=== PATIENT | male | born 1940 | race Caucasian/White ===

== ENCOUNTER → 2021-06-04 | Outpatient (CLI) | payer MEDICARE ==
--- NOTE | 2021-06-04 11:56 | CT ---
EXAMINATION TYPE: CT abdomen pelvis w con DATE OF EXAM: 06/04/2021 COMPARISON: None. HISTORY: Prostate cancer CT DLP: 1296.5 mGycm, Automated Exposure Control for Dose Reduction was Utilized. CONTRAST: CT scan of the abdomen and pelvis is performed without oral but with IV Contrast, patient injected wi th 100 mL of Isovue 300. FINDINGS: LUNG BASES: Bibasilar dependent atelectasis. Mild to moderate bibasilar linear scarring and/or atelec tasis. Calcification at level of the mitral and aortic valve. Right coronary artery stent. LIVER/GB: Multiple small dependent gallstones. No surrounding inflammatory change. PANCREAS: No significant abnormality is seen. SPLEEN: No significant abnormality is seen. ADRENALS: No significant abnormality is seen. KIDNEYS: Central 1.3 cm staghorn type calculus left kidney coronal image 59. Some cortical thinning p articularly on the left. Symmetric cortical medullary uptake and excretion without hydronephrosis see n bilaterally. Rosario catheter in decompressed bladder which is thus suboptimally evaluated. BOWEL: No suspicious small or large bowel dilatation. Stomach poorly distended and suboptimally evalu ated. Diverticula in the left and sigmoid colon without CT evidence for acute diverticulitis. PROSTATE/SEMINAL VESICLES: Prostate gland normal in size. LYMPH NODES: No greater than 1cm abdominal or pelvic lymph nodes are appreciated. OSSEOUS STRUCTURES: Osseous structures are demineralized. Levoconvex scoliosis centered at L3-L4 leve l. Ossific fusion of the L3 and L4 vertebra. Moderate to severe disc space narrowing with vacuum disc phenomenon from lower thoracic spine through the lumbosacral junction. Prominent facet arthropathy l ower lumbar levels. Metallic hardware from left proximal femur surgery through a healed fracture deformity is partially i doc. Nonspecific 1.0 cm sclerotic focus right sacrum coronal image 60 and just under 1.0 cm lesion anterio r lower L3 vertebral sagittal image 68. Near 1.0 cm sclerotic focus left iliac bone coronal image 58. OTHER: Small fat-containing right inguinal hernia. Moderate calcified plaque in the ectatic abdominal aorta. Focal aneurysm up to 5.5 cm transversely ax ial image 38 in the infrarenal abdominal aorta over roughly 6.0 cm in length. IMPRESSION: 1. 3 nonspecific small round sclerotic lesions, differential includes benign bone islands versus kaycee y ossific metastatic disease. Correlation with PSA values and whole body bone scan is advised. 2. No suspicious mass or adenopathy to suggest metastatic disease otherwise seen. 3. 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 Advise endovascular and/or surgical referral . Imaging monitoring at 3-6 months time is also recommended.
--- NOTE | 2021-06-04 15:10 | NM ---
EXAMINATION TYPE: NM bone scan whole body DATE OF EXAM: 06/04/2021 COMPARISON: CT same date HISTORY: Prostate cancer, CT 61 Delayed whole-body scanning was performed following the injection of 23.1 mCi Tc 99m MDP. Images acq uired 3 hours post injection. FINDINGS: Uptake within the shoulders, wrists and hands, knees, spine, hips is likely degenerative. Postop fowler ges are noted to the left proximal femur. Soft tissue uptake is within normal limits. No abnormal inc reased or decreased uptake to suggest metastatic disease. Scoliotic curvature noted in the spine. IMPRESSION: Metastatic disease is not evident.
== END | disposition home or self-care (01) ==
LOC: RADNMMAIN 10:19
PROVIDERS: ATTEND Urology
DX: C61 Malignant neoplasm of prostate (principal); I71.4 Abdominal aortic aneurysm, without rupture
CPT/HCPCS: 82565; 84520; 74177; 36415; 78306; A9503; Q9967